=== PATIENT | male | born 1970 | race American Indian/Alaskan Native ===

== ENCOUNTER 2018-10-05 07:05 | Emergency (ER) | payer SELFPAY ==
[2018-10-05 07:34] VITALS: BP 151/79
[2018-10-05 08:17] LABS: Basophils % (Auto) 0.3 % (0.0-1.8); Eosinophils # (Auto) 0.2 K/mm3 (0.0-0.4); Eosinophils % (Auto) 2.1 % (0.0-4.3); Hematocrit 47.8 % (35.5-45.6); Hemoglobin 16.4 gm/dl (11.8-15.2); Lymphocytes # (Auto) 1.7 K/mm3 (1.2-5.4); Lymphocytes % (Auto) 22.8 % (13.4-35.0); Mean Corpuscular HGB Conc 34 % (32-34); Mean Corpuscular Volume 84 fl (84-94); Monocytes # (Auto) 0.5 K/mm3 (0.0-0.8); Monocytes % (Auto) 6.2 % (0.0-7.3); Platelet Count 161 K/mm3 (140-440); Red Blood Count 5.67 M/mm3 (3.65-5.03); Red Cell Distribution Width 14.7 % (13.2-15.2)
[2018-10-05 08:31] LABS: Alanine Aminotransferase 26 units/L (7-56); Albumin 4.2 g/dL (3.9-5); BUN/Creatinine Ratio 18; Blood Urea Nitrogen 14 mg/dL (9-20); Hemolysis Index 22
--- NOTE | 2018-10-05 09:16 | Emergency Department Report ---
ED Neck Pain/Injury HPI - General Chief Complaint: Neck Pain/Injury Stated Complaint: SHARP CHEST PAIN, LT ARM NUMBNESS Time Seen by Provider: 10/05/18 08:54 Mode of arrival: Ambulatory Limitations: No Limitations - History of Present Illness Initial Comments: Patient is a 48-year-old male with a past medical history of mild hypertension who states that he has had pain mostly in th left side of his neck that radiates down through his left arm down to his fingertips. Patient states this is occurred intermittently for the last week. Patient states that he has a numb sensation in the forearm and some tingling in his fingers. States the discomfort is worse when he turns his head from side to side and sometimes after waking up. His improved after movement and sometimes gets better throughout the day. Patient denies any nausea vomiting or direct trauma. Patient states there is some discomfort sometimes in his left upper chest near the shoulder. Severity scale (0 -10): 6 - Related Data Previous Rx's Medication Instructions Recorded Last Taken Type methOCARBAMOL [Robaxin TAB] 500 mg PO Q6H PRN #14 tablet 10/05/18 Unknown Rx predniSONE [Deltasone] 20 mg PO QDAY #5 tab 10/05/18 Unknown Rx traMADol [Ultram] 50 mg PO Q6HR PRN #12 tablet 10/05/18 Unknown Rx Allergies Allergy/AdvReac Type Severity Reaction Status Date / Time No Known Allergies Allergy Unverified 10/05/18 07:36 ED Review of Systems ROS: Stated complaint: SHARP CHEST PAIN, LT ARM NUMBNESS Other details as noted in HPI Comment: All other systems reviewed and negative ED Past Medical Hx - Social History Smoking Status: Current Some Day Smoker Substance Use Type: None - Medications Home Medications: Home Medications Medication Instructions Recorded Confirmed Last Taken Type methOCARBAMOL [Robaxin TAB] 500 mg PO Q6H PRN #14 tablet 10/05/18 Unknown Rx predniSONE [Deltasone] 20 mg PO QDAY #5 tab 10/05/18 Unknown Rx traMADol [Ultram] 50 mg PO Q6HR PRN #12 tablet 10/05/18 Unknown Rx ED Physical Exam - General Limitations: No Limitations General appearance: alert, in no apparent distress - Head Head exam: Present: atraumatic, normocephalic - Eye Eye exam: Present: normal appearance, PERRL, EOMI - ENT ENT exam: Present: mucous membranes moist - Neck Neck exam: Present: normal inspection - Respiratory Respiratory exam: Present: normal lung sounds bilaterally. Absent: respiratory distress, wheezes, rales, rhonchi - Cardiovascular Cardiovascular Exam: Present: regular rate, normal rhythm. Absent: systolic murmur, diastolic murmur, rubs, gallop - GI/Abdominal GI/Abdominal exam: Present: soft, normal bowel sounds. Absent: distended, tenderness, guarding, rebound - Rectal Rectal exam: Present: deferred - Extremities Exam Extremities exam: Present: normal inspection - Back Exam Back exam: Present: normal inspection - Neurological Exam Neurological exam: Present: alert, oriented X3 - Psychiatric Psychiatric exam: Present: normal affect, normal mood - Skin Skin exam: Present: warm, dry, intact, normal color. Absent: rash ED Course Vital Signs 10/05/18 07:31 Temperature 98.5 F Pulse Rate 65 Respiratory 16 Rate Blood Pressure 151/79 O2 Sat by Pulse 94 Oximetry ED Medical Decision Making - Lab Data Result diagrams: 10/05/18 07:42 10/05/18 07:42 Lab Results 10/05/18 10/05/18 Range/Units 07:42 07:42 WBC 7.3 (4.5-11.0) K/mm3 RBC 5.67 H (3.65-5.03) M/mm3 Hgb 16.4 H (11.8-15.2) gm/dl Hct 47.8 H (35.5-45.6) % MCV 84 (84-94) fl MCH 29 (28-32) pg MCHC 34 (32-34) % RDW 14.7 (13.2-15.2) % Plt Count 161 (140-440) K/mm3 Lymph % (Auto) 22.8 (13.4-35.0) % [place] % (Auto) 6.2 (0.0-7.3) % Eos % (Auto) 2.1 (0.0-4.3) % Baso % (Auto) 0.3 (0.0-1.8) % Lymph # 1.7 (1.2-5.4) K/mm3 [place] # 0.5 (0.0-0.8) K/mm3 Eos # 0.2 (0.0-0.4) K/mm3 Baso # 0.0 (0.0-0.1) K/mm3 Seg Neutrophils % 68.6 (40.0-70.0) % Seg Neutrophils # 5.0 (1.8-7.7) K/mm3 Sodium 140 (137-145) mmol/L Potassium 4.4 (3.6-5.0) mmol/L Chloride 105.3 (98-107) mmol/L Carbon Dioxide 25 (22-30) mmol/L Anion Gap 14 mmol/L BUN 14 (9-20) mg/dL Creatinine 0.8 (0.8-1.5) mg/dL Estimated GFR > 60 ml/min BUN/Creatinine Ratio 18 % Glucose 131 H (75-100) mg/dL Calcium 10.0 (8.4-10.2) mg/dL Total Bilirubin 0.30 (0.1-1.2) mg/dL AST 24 (5-40) units/L ALT 26 (7-56) units/L Alkaline Phosphatase 72 (35-129) units/L Troponin T < 0.010 (0.00-0.029) ng/mL Total Protein 7.2 (6.3-8.2) g/dL Albumin 4.2 (3.9-5) g/dL Albumin/Globulin Ratio 1.4 % - EKG Data -: EKG Interpreted by Mo EKG shows normal: sinus rhythm, axis, intervals, QRS complexes, ST-T waves Rate: normal - EKG Data Interpretation: normal EKG - Radiology Data X-ray of the cervical spine shows degenerative changes. X-ray of the chest shows no acute process. - Medical Decision Making Patient likely with cervical radiculopathy secondary to his degenerative joint disease. Patient referred to orthopedics and given meds for her symptomatically. Critical care attestation.: If time is entered above; I have spent that time in minutes in the direct care of this critically ill patient, excluding procedure time. ED Disposition Clinical Impression: Cervical radiculopathy, Degenerative cervical disc Disposition: DC- TO HOME OR SELFCARE Is pt being admited?: No Does the pt Need Aspirin: No Condition: Stable Instructions: Cervical Radiculopathy (ED), Degenerative Disc Disease (ED) Referrals: GIANNA REYES MD [Staff Physician] - 3-5 Days Time of Disposition: 09:16
--- NOTE | 2018-10-05 09:22 | XRay Report ---
CERVICAL SPINE, 3 views: History: Neck pain. Findings: The vertebral bodies, disk spaces, posterior elements and prevertebral soft tissues are unremarkable. The dens is intact. Mild degenerative disc disease is identified at C4-5, C5-6 and C6-7. No acute fracture or malalignment is identified. Impression: Mild cervical spondylosis. No evidence for acute injury to the cervical spine.
--- NOTE | 2018-10-05 09:23 | XRay Report ---
AP CHEST: HISTORY: chest pain AP view of the chest demonstrates a normal mediastinal and cardiac contour with clear lungs and normal bony and soft tissue structures. IMPRESSION: Unremarkable AP chest.
== END 2018-10-05 09:27 | disposition home or self-care (01) ==
LOC: ED 07:05
DX: M54.12 Radiculopathy, cervical region (principal); M50.30 Other cervical disc degeneration, unspecified cervical region; F17.200 Nicotine dependence, unspecified, uncomplicated
CPT/HCPCS: 36415; 71045; 72040; 80053; 84484; 85025; 93005; 93010; 99283

== ENCOUNTER 2019-07-28 14:12 | Emergency (ER) | payer MEDICAID ==
--- NOTE | 2019-07-28 14:32 | Emergency Department Report ---
Blank Doc - Documentation Documentation: 49-year-old male that presents with left arm pain and swelling with numbness and tingling sensation. This initial assessment/diagnostic orders/clinical plan/treatment(s) is/are subject to change based on patient's health status, clinical progression and re- assessment by fellow clinical providers in the ED. Further treatment and workup at subsequent clinical providers discretion. Patient/guardians urged not to elope from the ED as their condition may be serious if not clinically assessed and managed. Initial orders include: 1- Patient sent to [facility] for further evaluation and treatment 2- Doppler US
[2019-07-28 14:36] VITALS: BP 179/84
--- NOTE | 2019-07-28 15:23 | Emergency Department Report ---
ED Extremity Problem HPI - General Chief complaint: Extremity Problem,Nontraumatic Stated complaint: SENT BY DR JAMEL Doyle) ARM/CHEST PAIN Time Seen by Provider: 07/28/19 14:30 Source: patient Mode of arrival: Ambulatory Limitations: No Limitations - History of Present Illness Initial comments: This is a pleasant 49-year-old male with a past medical history of diabetes and acid reflux who presents the emergency department the chief complaint of some mild pain and swelling to the left arm for the past few days. He was seen by his primary care doctor and sent here for evaluation. Patient is currently on metformin, a proton pump inhibitor and vitamin D. He denies any allergies to medications. His only surgery includes right ankle ORIF after trauma many years ago. He reports he has been feeling some cramping in the left arm as well as across his chest. He reports intermittent numbness in the left leg and intermittent shortness of breath. He denies any tobacco use, hyperlipidemia, and family history of CAD. - Related Data Previous Rx's Medication Instructions Recorded Last Taken Type methOCARBAMOL [Robaxin TAB] 500 mg PO Q6H PRN #14 tablet 10/05/18 Unknown Rx predniSONE [Deltasone] 20 mg PO QDAY #5 tab 10/05/18 Unknown Rx traMADoL [Ultram] 50 mg PO Q6HR PRN #12 tablet 10/05/18 Unknown Rx traMADoL [Ultram 50 MG tab] 50 mg PO Q4HR PRN #14 tablet 07/28/19 Unknown Rx Allergies Allergy/AdvReac Type Severity Reaction Status Date / Time No Known Allergies Allergy Unverified 10/05/18 07:36 ED Review of Systems ROS: Stated complaint: SENT BY DR JAMEL Doyle) ARM/CHEST PAIN Other details as noted in HPI Comment: All other systems reviewed and negative Constitutional: denies: chills, fever Eyes: denies: eye pain, eye discharge, vision change ENT: denies: ear pain, throat pain Respiratory: denies: cough, shortness of breath, wheezing Cardiovascular: as per HPI, chest pain. denies: palpitations Endocrine: no symptoms reported Gastrointestinal: denies: abdominal pain, nausea, diarrhea Genitourinary: denies: urgency, dysuria Musculoskeletal: as per HPI, myalgia. denies: back pain, joint swelling, arthralgia Skin: denies: rash, lesions Neurological: denies: headache, weakness, paresthesias Psychiatric: denies: anxiety, depression Hematological/Lymphatic: denies: easy bleeding, easy bruising ED Past Medical Hx - Past Medical History Previous Medical History?: Yes Hx Diabetes: Yes - Surgical History Past Surgical History?: Yes Additional Surgical History: right ankle - Social History Smoking Status: Never Smoker Substance Use Type: None - Medications Home Medications: Home Medications Medication Instructions Recorded Confirmed Last Taken Type methOCARBAMOL [Robaxin TAB] 500 mg PO Q6H PRN #14 tablet 10/05/18 Unknown Rx predniSONE [Deltasone] 20 mg PO QDAY #5 tab 10/05/18 Unknown Rx traMADoL [Ultram] 50 mg PO Q6HR PRN #12 tablet 10/05/18 Unknown Rx traMADoL [Ultram 50 MG tab] 50 mg PO Q4HR PRN #14 tablet 07/28/19 Unknown Rx ED Physical Exam - General Limitations: No Limitations General appearance: alert, in no apparent distress - Head Head exam: Present: atraumatic, normocephalic - Eye Eye exam: Present: normal appearance, PERRL, EOMI Pupils: Present: normal accommodation - ENT ENT exam: Present: normal exam, normal orophraynx, mucous membranes moist, normal external ear exam - Neck Neck exam: Present: normal inspection, full ROM. Absent: tenderness, meningismus - Respiratory Respiratory exam: Present: normal lung sounds bilaterally. Absent: respiratory distress, wheezes, rales, rhonchi, stridor - Cardiovascular Cardiovascular Exam: Present: regular rate, normal rhythm, normal heart sounds. Absent: systolic murmur, diastolic murmur, rubs, gallop - GI/Abdominal GI/Abdominal exam: Present: soft, normal bowel sounds. Absent: distended, tenderness, guarding, rebound, rigid - Rectal Rectal exam: Present: deferred - Extremities Exam Extremities exam: Present: normal inspection, full ROM, tenderness (Tenderness to the medial left upper arm with significant area of ecchymosis extending from the mid upper arm on the medial surface to the mid lower arm medial surface. No induration. Mild soft tissue swelling.), normal capillary refill. Absent: pedal edema, calf tenderness (No posterior calf tenderness, negative Homans sign bilaterally.) - Back Exam Back exam: Present: normal inspection, full ROM. Absent: tenderness, CVA tender ness (R), CVA tenderness (L) - Neurological Exam Neurological exam: Present: alert, oriented X3, normal gait, other (Normal strength and sensation to the bilateral upper and lower extremities, normal [id number] and [id number], normal gait without ataxia, no focal neurologic deficits.) - Psychiatric Psychiatric exam: Present: normal affect, normal mood - Skin Skin exam: Present: warm, dry, intact, normal color. Absent: rash ED Course Vital Signs 07/28/19 14:34 Temperature 97.7 F Pulse Rate 73 Respiratory 18 Rate Blood Pressure 179/84 O2 Sat by Pulse 97 Oximetry ED Medical Decision Making - Lab Data Result diagrams: 07/28/19 15:27 07/28/19 15:27 Lab Results 07/28/19 07/28/19 07/28/19 Range/Units 15:27 15:27 15:27 WBC 6.7 (4.5-11.0) K/mm3 RBC 5.15 H (3.65-5.03) M/mm3 Hgb 15.3 H (11.8-15.2) gm/dl Hct 45.4 (35.5-45.6) % MCV 88 (84-94) fl MCH 30 (28-32) pg MCHC 34 (32-34) % RDW 14.5 (13.2-15.2) % Plt Count 158 (140-440) K/mm3 Lymph % (Auto) 21.6 (13.4-35.0) % [place] % (Auto) 6.1 (0.0-7.3) % Eos % (Auto) 2.4 (0.0-4.3) % Baso % (Auto) 0.5 (0.0-1.8) % Lymph # 1.4 (1.2-5.4) K/mm3 [place] # 0.4 (0.0-0.8) K/mm3 Eos # 0.2 (0.0-0.4) K/mm3 Baso # 0.0 (0.0-0.1) K/mm3 Seg Neutrophils % 69.4 (40.0-70.0) % Seg Neutrophils # 4.6 (1.8-7.7) K/mm3 PT 13.1 (12.2-14.9) Sec. INR 0.98 (0.87-1.13) APTT 30.6 (24.2-36.6) Sec. Sodium 139 (137-145) mmol/L Potassium 4.1 (3.6-5.0) mmol/L Chloride 102.1 (98-107) mmol/L Carbon Dioxide 23 (22-30) mmol/L Anion Gap 18 mmol/L BUN 13 (9-20) mg/dL Creatinine 0.9 (0.8-1.5) mg/dL Estimated GFR > 60 ml/min BUN/Creatinine Ratio 14 % Glucose 115 H (75-100) mg/dL Calcium 10.2 (8.4-10.2) mg/dL Magnesium 2.00 (1.7-2.3) mg/dL Total Bilirubin 0.70 (0.1-1.2) mg/dL AST 50 H (5-40) units/L ALT 40 (7-56) units/L Alkaline Phosphatase 63 (35-129) units/L Total Creatine Kinase 794 H (55-170) units/L Troponin T < 0.010 (0.00-0.029) ng/mL Total Protein 7.4 (6.3-8.2) g/dL Albumin 4.2 (3.9-5) g/dL Albumin/Globulin Ratio 1.3 % - EKG Data -: EKG Interpreted by Sd EKG shows normal: sinus rhythm Rate: normal - EKG Data When compared to previous EKG there are: previous EKG unavailable Interpretation: normal EKG 07/28/19 17:16 Sinus bradycardia rate of [address] or T wave abnormalities, no STEMI, normal axis, normal intervals, no ectopy. - Radiology Data Radiology results: report reviewed XRay Report Signed Patient: SNEHAL WALKER MR#: [id number] 9 : 1970 Acct:[id number] Age/Sex: 49 / M ADM Date: 07/28/19 Loc: ED Attending Dr: Ordering Physician: ROBERTO BLANCHARD Date of Service: 07/28/19 Procedure(s): XR chest routine 2V Accession Number(s): [id number] cc: ROBERTO BLANCHARD Fluoro Time In Minutes: CHEST PA AND LATERAL VIEWS INDICATION: chest pain. COMPARISON: 10/05/2018 FINDINGS: Support devices: None Heart: Normal and unchanged Lungs/Pleura: No acute pulmonary or pleural findings. IMPRESSION: 1. No active disease and no interval change. Signer Name: Feng Lott MD Signed: 07/28/2019 4:14 PM Workstation Name: [id number] Transcribed By: TM Dictated By: Feng Lott MD Electronically Authenticated By: Feng Lott MD Signed Date/Time: 07/28/19 0694 Vascular Lab Report Signed Patient: SNEHAL WALKER MR#: [id number] 9 : 1970 Acct:[id number] Age/Sex: 49 / M ADM Date: 07/28/19 Loc: ED Attending Dr: Ordering Physician: SHA GIRON NP Date of Service: 07/28/19 Procedure(s): VL venous duplex UE LT Accession Number(s): [id number] cc: SHA GIRON NP VL venous duplex UE LT INDICATION / CLINICAL INFORMATION: left arm pain and swelling. COMPARISON: None available. FINDINGS: No evidence of deep vein thrombosis or other significant abnormality. IMPRESSION: 1. . Negative study. Signer Name: Feng Lott MD Signed: 07/28/2019 3:20 PM Workstation Name: [id number] Transcribed By: TM Dictated By: Feng oLtt MD Electronically Authenticated By: Feng Lott MD Signed Date/Time: 07/28/19 1520 - Medical Decision Making Patient presented to the ER with chief complaint of swelling to his left arm. On exam he had a large area of ecchymosis to the medial side of his elbow. There is no crepitus or fluctuance. There was normal distal sensation and cap refill. Ultrasound was negative for DVT. Labs returned relatively unremarkable other than an elevation of his CK. He was given 2 L of IV fluids recommended increase hydration and avoid NSAIDs. Kidney function was normal. He also reports some intermittent cramping in his chest. EKG was unremarkable, troponin was negative heart score so low risk at 3 and he was given outpatient follow-up with his primary broker. Patient is PERC negative and low risk by Wells criteria for PE making this unlikely. Chest x-ray was clear making pneumonia or pneumothorax unlikely. No widening of the mediastinum and normal equal radial pulses with no tearing or ripping pain to the back making acute aortic dissection unlikely. Patient was given outpatient follow-up and strict return precautions for any changing or worsening symptoms. He verbalized understanding the diagnosis, treatment plan and follow-up instructions. - Differential Diagnosis rhabdomyolysis, contusion, hematoma, DVT, ACS, PE Critical care attestation.: If time is entered above; I have spent that time in minutes in the direct care of this critically ill patient, excluding procedure time. ED Disposition Clinical Impression: Traumatic hematoma of left upper arm Qualifiers: Encounter type: initial encounter Qualified Code(s): S40.022A - Contusion of left upper arm, initial encounter Rhabdomyolysis Qualifiers: Rhabdomyolysis type: traumatic Encounter type: initial encounter Qualified Code(s): T79.6XXA - Traumatic ischemia of muscle, initial encounter Disposition: TO HOME OR SELFCARE Is pt being admited?: No Condition: Stable Prescriptions: traMADoL [Ultram 50 MG tab] 50 mg PO Q4HR PRN #14 tablet PRN Reason: Pain Referrals: [facility] [Provider Group] - 3-5 Days PRIMARY CAREMD [Primary Care Provider] - 3-5 Days TERRY WHEELER MD [Staff Physician] - 3-5 Days Forms: Work/School Release Form(ED)
[2019-07-28 15:43] LABS: Basophils % (Auto) 0.5 % (0.0-1.8); Eosinophils # (Auto) 0.2 K/mm3 (0.0-0.4); Eosinophils % (Auto) 2.4 % (0.0-4.3); Hematocrit 45.4 % (35.5-45.6); Hemoglobin 15.3 gm/dl (11.8-15.2); Lymphocytes # (Auto) 1.4 K/mm3 (1.2-5.4); Lymphocytes % (Auto) 21.6 % (13.4-35.0); Mean Corpuscular HGB Conc 34 % (32-34); Mean Corpuscular Volume 88 fl (84-94); Monocytes # (Auto) 0.4 K/mm3 (0.0-0.8); Monocytes % (Auto) 6.1 % (0.0-7.3); Platelet Count 158 K/mm3 (140-440); Red Blood Count 5.15 M/mm3 (3.65-5.03); Red Cell Distribution Width 14.5 % (13.2-15.2)
[2019-07-28 15:53] LABS: Alanine Aminotransferase 40 units/L (7-56); Albumin 4.2 g/dL (3.9-5); BUN/Creatinine Ratio 14; Blood Urea Nitrogen 13 mg/dL (9-20); Calcium 10.2 mg/dL (8.4-10.2); Hemolysis Index 13
[2019-07-28] MEDS ORDERED: SODIUM CHLORIDE 0.9% 1000 ML 2,000 ML IV ONE (15:55)
[2019-07-28 15:56] LABS: INR 0.98 (0.87-1.13)
[2019-07-28 15:57] LABS: Partial Thromboplastin Time 30.6 Sec. (24.2-36.6)
--- NOTE | 2019-07-28 16:19 | XRay Report ---
CHEST PA AND LATERAL VIEWS INDICATION: chest pain. COMPARISON: 10/05/2018 FINDINGS: Support devices: None Heart: Normal and unchanged Lungs/Pleura: No acute pulmonary or pleural findings. IMPRESSION: 1. No active disease and no interval change. Signer Name: Feng Lott MD Signed: 07/28/2019 4:14 PM Workstation Name: [id number]
== END 2019-07-28 18:15 | disposition home or self-care (01) ==
LOC: ED 14:12
DX: S40.022A Contusion of left upper arm, initial encounter (principal); M62.82 Rhabdomyolysis; E11.9 Type 2 diabetes mellitus without complications; K21.9 Gastro-esophageal reflux disease without esophagitis; Z79.899 Other long term (current) drug therapy; Z79.84 Long term (current) use of oral hypoglycemic drugs; Z98.890 Other specified postprocedural states; X58.XXXA Exposure to other specified factors, initial encounter; Y93.89 Activity, other specified; Y92.89 Other specified places as the place of occurrence of the external cause; Y99.8 Other external cause status
CPT/HCPCS: 36415; 71046; 80053; 82550; 83735; 84484; 85025; 85610; 85730; 93005; 93010; 93971; 99283; J7030